=== PATIENT | male | born 1990 | race American Indian/Alaskan Native ===

== ENCOUNTER 2018-11-18 21:22 | Emergency (ER) | payer MEDICAID ==
--- NOTE | 2018-11-18 21:41 | Emergency Department Report ---
Blank Doc - Documentation Documentation: 27 y o male presents to Ed brought in by sister from [place] being aggressive and manic mh labs main side ed
[2018-11-18 21:59] LABS: Eosinophils % (Auto) 1.9 % (0.0-4.3); Hematocrit 42.6 % (35.5-45.6); Hemoglobin 14.5 gm/dl (11.8-15.2); Lymphocytes % (Auto) 39.1 % (13.4-35.0); Mean Corpuscular HGB Conc 34 % (32-34); Mean Corpuscular Volume 99 fl (84-94); Monocytes % (Auto) 6.6 % (0.0-7.3); Platelet Count 253 K/mm3 (140-440); Red Blood Count 4.31 M/mm3 (3.65-5.03); Red Cell Distribution Width 12.7 % (13.2-15.2)
[2018-11-18 22:00] LABS: Basophils # (Auto) 0.1 K/mm3 (0.0-0.1); Eosinophils # (Auto) 0.1 K/mm3 (0.0-0.4); Lymphocytes # (Auto) 2.6 K/mm3 (1.2-5.4); Monocytes # (Auto) 0.4 K/mm3 (0.0-0.8)
[2018-11-18] MEDS ORDERED: BENADRYL PO SCH (22:00)
[2018-11-18 22:05] LABS: BUN/Creatinine Ratio 9; Blood Urea Nitrogen 10 mg/dL (9-20); Calcium 9.3 mg/dL (8.4-10.2); Hemolysis Index 34
[2018-11-18 22:42] LABS: Bilirubin,Urine NEG (Negative); Blood,Urine NEG (Negative); Color,Urine Yellow (Yellow); Protein,Urine <15 mg/dL mg/dL (Negative); Urobilinogen,Urine < 2.0 mg/dL (<2.0)
[2018-11-18 22:45] LABS: Amphetamine Screen,Urine PRESUMPTIVE NEGATIVE; Benzodiazepines Screen,Urine PRESUMPTIVE NEGATIVE; Cannabinoid Screen,Urine PRESUMPTIVE NEGATIVE; Cocaine Screen,Urine PRESUMPTIVE NEGATIVE; Methadone Screen,Urine PRESUMPTIVE NEGATIVE; Opiate Screen,Urine PRESUMPTIVE NEGATIVE
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
[2018-11-18] MEDS ORDERED: DESYREL PO SCH (22:51)
[2018-11-18] MEDS: COGENTIN PO SCH (23:31)
[2018-11-18] MEDS: HALDOL PO SCH (23:31)
[2018-11-19 08:35] LABS: Alanine Aminotransferase 14 units/L (7-56)
[2018-11-19] MEDS: HALDOL PO SCH (11:45)
[2018-11-19] MEDS: COGENTIN PO SCH (11:45)
--- NOTE | 2018-11-19 12:05 | Consultation ---
History of Present Illness - Reason for Consult Consult date: 11/19/18 Reason for consult: Mental Health Evaluation Requesting physician: AMRITA SLATER - Chief Complaint Chief complaint: "I should be able to go home" - History of Present Psychiatric Illness 27 y.o. AA male who presented to the ER for bizarre behavior. Today the patient is calm, but somewhat disorganized during the assessment. He stated that he was hearing voices yesterday telling him to do all types of things per the patient. His answers to some questions asked of him was not logical. He had to be redirected several times to keep him on topic. He was asked about hsi actions reference jumping from a car, he stated, "Yes I tried that." He would not explain in detail what triggered that type of behavior when asked. Per vikas al information from his mother Malena Schultz, she stated that her son's behavior have been erratic prior to him being hospitalized at [facility]. She stated that her son's behavior have not changed since being discharge from [place] 2 weeks ago. The The patient denies SI/HI's and AVH's. He denies a poor appetite and erratic sleep." He acknowledged smoking marijuana daily. He denies alcohol consumption (etoh). The patient confirmed that he takes 2 antipsychotcis (Haldol/Zyprexa). Medications and Allergies Allergies Allergy/AdvReac Type Severity Reaction Status Date / Time No Known Allergies Allergy Verified 11/18/18 22:58 Home Medications Medication Instructions Recorded Confirmed Last Taken Type Benztropine [Cogentin] 0.5 mg PO BID 11/18/18 11/18/18 Unknown History Divalproex ER [Depakote ER] 500 mg PO BID 11/18/18 11/18/18 Unknown History Haloperidol [Haldol] 5 mg PO BID 11/18/18 11/18/18 Unknown History Melatonin 3 mg PO QHS PRN 11/18/18 11/18/18 Unknown History OLANZapine 10 mg PO DAILY 11/18/18 11/18/18 Unknown History diphenhydrAMINE [Benadryl CAP] 25 mg PO QHS PRN 11/18/18 11/18/18 Unknown History traZODone [Desyrel] 150 mg PO QHS 11/18/18 11/18/18 Unknown History Active Meds: Active Medications Benztropine Mesylate (Cogentin) 0.5 mg PO BID [facility] Last Admin: 11/19/18 11:45 Dose: 0.5 mg Documented by: Diphenhydramine HCl (Benadryl) 25 mg PO QHS [facility] Last Admin: 11/18/18 23:31 Dose: 25 mg Documented by: Divalproex Sodium (Depakote Dr) 500 mg PO BID [facility] Last Admin: 11/19/18 11:45 Dose: 500 mg Documented by: Haloperidol (Haldol) 5 mg PO BID [facility] Last Admin: 11/19/18 11:45 Dose: 5 mg Documented by: Olanzapine (Zyprexa) 10 mg PO DAILY@2200 [facility] Last Admin: 11/18/18 23:31 Dose: 10 mg Documented by: Trazodone HCl (Desyrel) 150 mg PO QHS [facility] Last Admin: 11/18/18 23:31 Dose: 150 mg Documented by: Past psychiatric history - Past Medical History Past Medical History: No medical history Past Surgical History: No surgical history - past Psychiatric treatment and history psychiatric treatment history: Inpatient psy services in the past. Denies a fam psy hx. - Social History Social history: lives with family Mental Status Exam - Vital signs Last Vital Signs Temp 98.0 F 11/19/18 07:30 Pulse 83 11/19/18 07:30 Resp 18 11/19/18 07:30 BP 104/68 11/19/18 07:30 Pulse Ox 100 11/19/18 07:30 - Exam Narrative exam: MSE: Appearance: calm, cooperative Behavior: regular eye contact Speech: regular rate and tone Mood: "okay" Affect: congruent to mood Thought Process: somewhat disorganized Thought Content: denies SI/HI and AVH's, delusional Motor Activity: sitting up in bed Cognition: A/Ox 3 Insight: variable Judgment: variable Results Result Diagrams: 11/18/18 21:44 11/18/18 21:44 Abnormal lab results 11/18/18 11/19/18 11/19/18 Range/Units 21:44 07:55 07:55 MCV 99 H (84-94) fl MCH 34 H (28-32) pg RDW 12.7 L (13.2-15.2) % Lymph % (Auto) 39.1 H (13.4-35.0) % Amylase (27-131) units/L Salicylates < 0.3 L (2.8-20.0) mg/dL Acetaminophen < 5.0 L (10.0-30.0) ug/mL Valproic Acid (50-100) ug/mL 11/19/18 11/19/18 Range/Units 07:55 07:55 MCV (84-94) fl MCH (28-32) pg RDW (13.2-15.2) % Lymph % (Auto) (13.4-35.0) % Amylase 143 H (27-131) units/L Salicylates (2.8-20.0) mg/dL Acetaminophen (10.0-30.0) ug/mL Valproic Acid 41.8 L (50-100) ug/mL All other labs normal. Assessment and Plan Assessment and plan: Impression: Unspecified Psychosis. Today the patient is calm, but somewhat disorganized during the assessment. DDx: Schizophrenia, Bipolar DO with psychosis Recommendation/Plan: Continues 1013 and his home medications Zyprexa 10 mg PO BID for psychosis, Haldol 5 mg PO BID for psychosis, and Cogentin 0.5 mg PO BID for EPS Prevention. Dispo: The patient was referred to inpatient psy services. Will staff with Dr Corrie Silva.
[2018-11-19 22:03] VITALS: BP 117/62
== END 2018-11-19 19:00 | disposition admitted as inpatient to this hospital (09) ==
LOC: ED 21:22 → EEVIPCON 21:22 → ED 11-19 19:00
DX: F20.0 Paranoid schizophrenia (principal); F23 Brief psychotic disorder; F12.10 Cannabis abuse, uncomplicated; F31.9 Bipolar disorder, unspecified
CPT/HCPCS: 36415; 80048; 80164; 80178; 80185; 80307; 81001; 82150; 83690; 84075; 84450; 84460; 85025; 99285; G0480; 80320